=== PATIENT | male | born 1960 | race Caucasian/White ===

== ENCOUNTER → 2018-11-20 10:44 | Outpatient (CLI) | payer OTHER, SELFPAY ==
--- NOTE | 2018-11-20 10:48 | DI.RAD.S_ITS ---
PROCEDURE: XR KNEE LT 3V INDICATIONS: pain, swelling, h/o replacement 10yrs ago, r/o injury/infxn TECHNIQUE: 3 views of the knee were acquired. COMPARISON: None. FINDINGS: Bones: No fractures or dislocations. No suspicious bony lesions. Knee arthroplasty is present. Degenerative changes are present. No evidence of hardware/or periprosthetic loosening. Soft tissues: Mild joint effusion. No suspicious soft tissue calcifications. IMPRESSION: Mild effusion. No visualized acute fracture or dislocation. However, if clinical concern and/or pain persist, short interval imaging followup in 7-10 days is recommended, as occult injury cannot be definitively excluded. Dictated by: Prisca Hummel M.D. on 11/20/2018 at 11:43 Approved by: Prisca Hummel M.D. on 11/20/2018 at 11:44
[2018-11-20 11:27] LABS: Add Manual Diff / Slide Review NO; Basophils Absolute Auto 100 /uL (0-100); Basophils Percent Auto 1.4 % (0-2); Eosinophils Absolute Auto 200 /uL (0-450); Eosinophils Percent Auto 3.2 % (2-4); Hematocrit 40.1 % (41-53); Hemoglobin 13.4 g/dL (13.5-17.5); Lymphocytes Absolute Auto 2100 /uL (1100-4500); Lymphocytes Percent Auto 29.5 % (25-40); Mean Corpuscular HGB Conc 33.5 % (30-36); Mean Corpuscular Hemoglobin 27.8 PG (26-34); Mean Corpuscular Volume 82.8 fL (80-100); Monocytes Absolute Auto 800 /uL (0-900); Monocytes Percent Auto 10.5 % (3-14); Neutrophils Absolute Auto 4000 /uL (1500-7000); Neutrophils Percent Auto 55.4 % (50-75); Platelet Count 265 X10^3/uL (150-400); Red Blood Cell Count 4.84 X10^6/uL (4.5-5.9); Red Cell Distribution Width 14.4 % (11.6-14.8); White Blood Cell Count 7.2 X10^3/uL (4.5-11.0)
[2018-11-20 11:35] LABS: C-Reactive Protein Quant < 0.5 mg/dL (<1.0)
[2018-11-20 11:57] LABS: Erythrocyte Sedimentation Rate 5 MM/HR (0-15)
== END ==
PROVIDERS: Visit Provider Physician Assistant
DX: M25.562 Pain in left knee (principal); M25.462 Effusion, left knee; Z96.652 Presence of left artificial knee joint
CPT/HCPCS: 36415; 73562; 83605; 85025; 85651; 86140

== ENCOUNTER → 2020-04-27 15:31 | Outpatient (CLI) | payer OTHER, SELFPAY ==
--- NOTE | 2020-04-27 | DI.RAD.S_ITS ---
PROCEDURE: XR CERVICAL SPINE 1V INDICATIONS: S/P CERVICAL FUSION TECHNIQUE: Single lateral view of the cervical spine acquired. COMPARISON: None. FINDINGS: Bones: Lateral cervical spine demonstrates interval ACDF from the C3 through the C6 level with surgical fixation hardware and intervertebral disc spacers in expected positions. There is moderate disc degeneration at the C6-C7 and C7-T1 level as was seen on prior examination. Soft tissues: No prevertebral soft tissue swelling. IMPRESSION: Interval ACDF from the C3 through the C6 level with surgical fixation plate and associated intervertebral disc spacers in expected positions. Dictated by: Josef LEMUS Interpreted: Prisca Hummel MD on 04/27/2020 at 16:26 Approved by: Louis Lockhart M.D. on 05/01/2020 at 11:50
== END ==
PROVIDERS: PCP Internal Medicine; Referring Provider Neurological Surgery; Visit Provider Neurological Surgery
DX: M48.02 Spinal stenosis, cervical region (principal); M50.323 Other cervical disc degeneration at C6-C7 level; Z98.1 Arthrodesis status
CPT/HCPCS: 72020

== ENCOUNTER → 2020-06-06 06:52 | Outpatient (CLI) | payer OTHER, SELFPAY ==
--- NOTE | 2020-06-06 | DI.RAD.S_ITS ---
PROCEDURE: XR CERVICAL SPINE 4V OR 5V INDICATIONS: NECK PAIN TECHNIQUE: 5 5 views of the cervical spine were acquired. COMPARISON: [facility], CR, XR CERVICAL SPINE 1V, 04/27/2020, 15:35. FINDINGS: Bones: No acute fracture identified. Postsurgical changes seen at C3-C4, C4-C5, C5-C6, with ACDF and interbody cage grafts. Multilevel spondylosis/endplate changes. Diffuse facet arthropathy. No evidence of abnormal motion with dynamic flexion and extension lateral views. Hardware appears intact. Moderate narrowing of the C6-C7 disc space. Mild narrowing of the C7-T1 disc space Soft tissues: Prevertebral soft tissues are normal in thickness. IMPRESSION: Postsurgical changes as above from C3-C6. Moderate disc degeneration at the inferior unfused segment. No interval change since 04/27/20 No evidence of abnormal motion with dynamic flexion and extension lateral views. Dictated by: Marc Reddy M.D. on 06/06/2020 at 10:43 Approved by: Marc Reddy M.D. on 06/06/2020 at 10:56
== END ==
PROVIDERS: PCP Internal Medicine; Referring Provider Neurological Surgery; Visit Provider Neurological Surgery
DX: M54.2 Cervicalgia (principal); M50.30 Other cervical disc degeneration, unspecified cervical region
CPT/HCPCS: 72050

== ENCOUNTER → 2020-09-21 12:47 | Outpatient (CLI) | payer OTHER, SELFPAY ==
--- NOTE | 2020-09-21 | DI.RAD.S_ITS ---
PROCEDURE: XR CERVICAL SPINE 4V OR 5V INDICATIONS: Spinal stenosis, cervical region TECHNIQUE: 5 views of the cervical spine were acquired. COMPARISON: [facility], CR, XR CERVICAL SPINE 4V OR 5V, 06/06/2020, 7:19. FINDINGS: Bones: No fractures or dislocations to the T1 level. No suspicious bony lesions. Prior ACDF from the C3 through the C6 level with fixation hardware and intervertebral bone grafts in expected unchanged positions. There is limits range of motion between flexion and extension, with preserved normal bony alignment. Multilevel diffuse facet joint arthropathy redemonstrated which appears similar to prior examination. Moderate narrowing again visualized at the C6-C7 level with mild narrowing at the C7-T1 level. Soft tissues: Prevertebral soft tissues are normal in thickness. IMPRESSION: Stable postsurgical sequelae and multilevel spondylosis similar to prior examination Limited range of motion. Dictated by: Josef LEMUS Interpreted: Beto Guidry MD on 09/21/2020 at 13:27 Transcribed by: MARE on 09/21/2020 at 13:30 Approved by: Beto Guidry M.D. on 09/21/2020 at 13:40
== END ==
PROVIDERS: PCP Internal Medicine; Referring Provider Neurological Surgery; Visit Provider Neurological Surgery
DX: M48.02 Spinal stenosis, cervical region (principal); M47.812 Spondylosis without myelopathy or radiculopathy, cervical region; Z98.1 Arthrodesis status
CPT/HCPCS: 72050

== ENCOUNTER → 2021-03-11 11:36 | Outpatient (CLI) | payer OTHER, SELFPAY ==
--- NOTE | 2021-03-11 | DI.RAD.S_ITS ---
PROCEDURE: XR CERVICAL SPINE 4V OR 5V INDICATIONS: Spinal stenosis, cervical region TECHNIQUE: 4 views of the cervical spine were acquired. COMPARISON: [facility], CR, XR CERVICAL SPINE 4V OR 5V, 09/21/2020, 12:57. FINDINGS: Bones: There is been discectomy and fusion with anterior plate and screw instrumentation at C3-4, C4-5 and C5-6. Hardware is in good position without evidence of hardware failure or loosening. Flexion extension imaging shows no evidence of segmental instability. There is normal bone mineralization, craniovertebral relationships and prevertebral soft tissue. Soft tissues: Prevertebral soft tissues are normal in thickness. IMPRESSION: 1. No evidence of segmental instability 2. Multilevel anterior cervical discectomy and fusion with anterior plate and screw hardware in good position Approved by: Reynold Newell M.D. on 03/11/2021 at 12:39
== END ==
PROVIDERS: PCP Internal Medicine; Referring Provider Neurological Surgery; Visit Provider Neurological Surgery
DX: M48.02 Spinal stenosis, cervical region (principal); Z98.1 Arthrodesis status
CPT/HCPCS: 72050

== ENCOUNTER → 2021-05-14 11:20 | Outpatient (CLI) | payer OTHER, SELFPAY ==
--- NOTE | 2021-05-14 | DI.RAD.S_ITS ---
PROCEDURE: XR KNEE LT 3V INDICATIONS: Presence of left artificial knee joint TECHNIQUE: 3 views of the knee were acquired. COMPARISON: [facility], , XR KNEE LT 3V, 11/20/2018, 10:47. FINDINGS: Bones: Total knee arthroplasty without evidence of hardware compromise. No fractures or dislocations. No suspicious bony lesions. Soft tissues: No substantial joint effusion. No suspicious soft tissue calcifications. IMPRESSION: No significant interval change. Dictated by: Alphonso Perkins M.D. on 05/14/2021 at 12:38 Approved by: Alphonso Perkins M.D. on 05/14/2021 at 12:40
== END ==
PROVIDERS: PCP Internal Medicine; Referring Provider Internal Medicine; Visit Provider Internal Medicine
DX: Z96.652 Presence of left artificial knee joint (principal); Z09 Encounter for follow-up examination after completed treatment for conditions other than malignant neoplasm
CPT/HCPCS: 73562

== ENCOUNTER 2022-04-29 07:43 | Day surgery (SDC) | payer OTHER, SELFPAY ==
--- NOTE | 2022-04-29 | PATH_ITS ---
[facility] Accession Number: [id number] No. of containers..01 Tissue . 01 Material submitted: . colon - DESCENDING . 01 Diagnosis: Descending Colon, Biopsy: Colonic mucosa with a small benign lymphoid aggregate and no other diagnostic abnormality. Additional levels were examined. Negative for dysplasia and malignancy. MRV 05/05/2022 1414 Local . 01 Electronically signed: . Nikki Allen MD, Pathologist NPI- [id number] . 01 Gross description: . The specimen is received in formalin labeled with the patient's name, , and descending, and consists of two irregular braswell soft tissue fragments ranging from 0.2 to 0.3 cm in greatest dimension. Submitted entirely in cassette A1. ([id number]) /MELINDA 04/30/2022 0945 Local . 01 Pathologist provided ICD-10: Z12.11 . 01 CPT . 715940 Specimen Comment: A courtesy copy of this report has been sent to [phone] Performed at: 01 [facility] [address] [place] [address], [place], [place] [id number] MD Justin Chi MD Phone: [phone]
[2022-04-29 08:02] VITALS: BP 153/81; PULSE 99; RESP 16; TEMP 36.3; O2SAT 100; BMI 37.3
[2022-04-29] MEDS: LACTATED RINGERS 1,000 ML 200 ML IV (08:17)
--- NOTE | 2022-04-29 09:02 | PM.HP.1 ---
History of Present Illness History of Present Illness Date Patient Seen: 04/29/22 Time Patient Seen: 09:02 Chief complaint: Colonoscopy Narrative: The patient presents for colorectal screening. Previous colonoscopy 15 years.. No personal or family history of colon cancer. On further history denies any recent gastrointestinal symptoms with the exception of occasional bright red blood per rectum which he attributes to hemorrhoid disease looser stools over the past 1 year than previously. Patient History Family & Social History Social History: household members spouse Tobacco & Substance use: Smoking Status Never smoker alcohol intake current alcohol intake frequency a few times a week Substance Use Type marijuana Meds Home Medications and Allergies Home Medications Medication Instructions Recorded Confirmed Type lisinopril 40 mg tablet 40 mg PO DAILY 11/20/18 04/29/22 History diclofenac sodium PO 02/11/19 09/21/21 History hydrochlorothiazide 12.5 mg PO QAM 02/11/19 04/29/22 History rosuvastatin [Crestor] 5 % PO ONCE PM 02/11/19 04/29/22 History Allergies Allergy/AdvReac Type Severity Reaction Status Date / Time levofloxacin [From Levaquin] AdvReac Severe Facial Verified 09/21/21 10:05 paralysis Exam Vital Signs (past 8 hours): - 04/29/22 08:02 Temperature 97.3 F L Pulse Rate 99 H Respiratory Rate 16 Blood Pressure 153/81 H Pulse Oximetry 100 Oxygen Delivery Method Room Air Oxygen Delivery Method Room Air Narrative Exam Narrative: General adult man alert oriented no acute distress Assessment & Plan Assessment & Plan narrative: The patient requires colorectal screening and colonoscopy is recommended. Technical details were discussed. Risks, benefits, alternatives explained. Risks including but not limited to myocardial infarction, aspiration, bleeding, pain, missed lesion, incomplete examination, need for further radiographic studies, colonic perforation, and need for major abdominal surgery were discussed. All questions were answered to their satisfaction, and they are in agreement with this plan. Time Spent With Patient Critical Care time: I spent a total of [] minutes of critical care time on this patient's care today; this time is exclusive of procedural time.
[2022-04-29 09:40] VITALS: BP 102/67; PULSE 91; RESP 14; TEMP 36.6; O2SAT 97
--- NOTE | 2022-04-29 09:43 | PM.OP.COLON ---
Operative Date/Time/Diagnoses Date of procedure: 04/29/22 Time of procedure: 09:43 Pre-op diagnosis: Colorectal screening Post-op diagnosis: other (Colonic polyp x1) Procedure & Clinicians Study performed: Colonoscopy and polypectomy Same procedure as scheduled: Yes Indications: Colorectal screening Surgeon: Kalpesh Castro Procedure Notes Procedure in detail: The history and physical was performed/updated and the patient is ASA class is 2. The procedure was discussed in detail with the patient. Potential risks complications including infection, bleeding, missed diagnosis, perforation, need for surgery, and were explained. Their questions were answered and informed consent was obtained. Patient was brought to the procedure room and placed standard monitoring equipment. The patient's vital signs were monitored continuously throughout the entire procedure. Prior to starting time-out was performed. The patient was placed in the left lateral recumbent position. Procedural sedation was administered by anesthesia. Examination began with a thorough inspection of the perianal area there was no evidence of fissures, fistulae, external hemorrhoids or cutaneous malignancy. The colonoscopy scope was then placed into the anal canal and was advanced to the cecum, which was identified by the ileocecal valve, the appendiceal orifice and the confluence of the taenia. The scope was then slowly withdrawn examining colon thoroughly in all directions, irrigating it of any residual stool. Within the descending colon there was a 5 mm polyp which was removed with biopsy forceps. The remainder of the colon was significant for diverticulosis within the sigmoid colon. The patient tolerated the procedure well. They will be discharged once criteria are met. The prep was of good/excellent quality. The withdrawl time was 7 minutes. Specimen(s): other (Descending colon polyp) Impression: Colonic polyp x1 Post-procedure Plan for aftercare: Follow-up is dependent on pathology findings Disposition: same day surgery
[2022-04-29 09:45] VITALS: BP 103/66; PULSE 82; RESP 20; O2SAT 97
[2022-04-29 09:49] VITALS: BP 122/75; PULSE 81; RESP 16; O2SAT 99
[2022-04-29 10:10] VITALS: BP 134/74; PULSE 79; RESP 16; TEMP 36.3; O2SAT 100
== END 2022-04-29 10:17 | disposition home or self-care (01) ==
PROVIDERS: PCP Internal Medicine; Referring Provider Surgery; Visit Provider Surgery
PROC: 0DJD8ZZ Inspection of Lower Intestinal Tract, Via Natural or Artificial Opening Endoscopic (ICD-10-PCS; CPT 45378; principal; 2022-04-29 09:00)
DX: Z12.11 Encounter for screening for malignant neoplasm of colon (principal); K57.30 Diverticulosis of large intestine without perforation or abscess without bleeding
CPT/HCPCS: 45380; J2704

== ENCOUNTER → 2024-01-29 07:43 | Outpatient (CLI) | payer OTHER, SELFPAY ==
--- NOTE | 2024-01-29 07:44 | DI.US.S_ITS ---
PROCEDURE: US ABDOMEN LIMITED INDICATIONS: Possible Ventral Hernia TECHNIQUE: Real-time focused scanning was performed of the abdomen, with image documentation. COMPARISON: None. FINDINGS: Scanning is performed at the area of clinical concern within the abdominal wall. Within this region, no hernias are seen. IMPRESSION: Negative for hernia. Dictated by: Jose Armando Singh M.D. on 01/29/2024 at 8:38 Approved by: Jose Armando Singh M.D. on 01/29/2024 at 8:38
== END ==
LOC: US 07:44
PROVIDERS: PCP Internal Medicine; Referring Provider Internal Medicine; Visit Provider Internal Medicine
DX: R14.0 Abdominal distension (gaseous) (principal)
CPT/HCPCS: 76705